=== PATIENT | female | born 1975 ===

== ENCOUNTER 2017-01-27 06:08 | Day surgery (SDC) | payer MEDICARE, MEDICAID ==
[2017-01-20 07:36] VITALS: BMI 33.5
[2017-01-27 06:46] LABS: HEMATOCRIT 38.9 % (34.0-47.0); MEAN CELL VOLUME 92.6 fl (81.0-99.0); MEAN CORPUSCULAR HEMOGLOBIN 30.6 pg (27.0-31.0); RED CELL DISTRIBUTION WIDTH 13.4 % (11.5-14.5); WHITE BLOOD COUNT 6.2 K/uL (4.8-10.8)
[2017-01-27] MEDS ORDERED: Propofol 10 mg/ml Inj (20 ML) ONE (07:38)
[2017-01-27] MEDS ORDERED: Midazolam 2 MG/2 ML VIAL ONE (07:38)
[2017-01-27] MEDS ORDERED: Lactated Ringer's 1,000 ML IV ONE (08:16)
--- NOTE | 2017-01-27 08:57 | PCM.SURG1 ---
Surgeon's Initial Post Op Note - Surgeon's Notes Surgeon: Dr Jacobsen Payroll Manager: Solange Henriquez( Resident) Type of Anesthesia: General Endo Anesthesia Administered By: Dr Boone Pre-Operative Diagnosis: Hypermenorrhea with endometrial polyps Operative Findings: 7-8wk sized anteverted uterus with hyperplastic endometrium and multiple endometrial polyps at hysteroscopy. IVF- 600mls. urine output- 20mls. EBL- 30mls Post-Operative Diagnosis: Same as Preop Operation Performed: D and C hysteroscopy Specimen/Specimens Removed: Endometrial and endocervical curretings. Estimated Blood Loss: EBL {In ML}: 30 Blood Products Given: N/A Post-Op Condition: Good Date of Surgery/Procedure: 01/27/17 Time of Surgery/Procedure: 08:58
[2017-01-27] MEDS ORDERED: DiphenhydrAMINE 50 mg/ml Inj IVP PRN (09:01)
[2017-01-27] MEDS: HYDROmorphone 0.5 mg/0.5 ml ISec IVP PRN ×2 (09:26→09:45)
[2017-01-27 10:10] VITALS: RESP 18
[2017-01-27 12:05] VITALS: BP 113/66; PULSE 73; TEMP 97.7; O2SAT 100
--- NOTE | 2017-01-27 13:45 | OP ---
PROCEDURE DATE: 01/27/2017 PREOPERATIVE DIAGNOSIS: A 41-year-old female with hypermenorrhea with endometrial polyps. POSTOPERATIVE DIAGNOSIS: A 41-year-old female with hypermenorrhea with endometrial polyps. PROCEDURE DONE: D and C, hysteroscopy with endometrial and endocervical curettage. SURGEON: Dr. Jacobsen. AIRPLANE PILOT HELPER: Solange Henriquez (family coach). ANESTHESIA: General endotracheal. Anesthesia administered by Dr. Boone. FINDINGS: A 7-8 weeks anteverted uterus with copious amounts of hyperplastic endometrium and multiple endometrial polyps at hysteroscopy. INTRAVENOUS FLUID INTAKE: 600 mL. URINE OUTPUT: 20 mL. ESTIMATED BLOOD LOSS: About 30 mL. COMPLICATIONS: None. SPECIMEN FOR HISTOPATHOLOGY: Both endometrial and endocervical curettage. DESCRIPTION OF PROCEDURE: After obtaining informed consent, the patient was sent to the OR with IV running. The patient was placed in a supine position on the OR table. After general anesthesia, the patient was placed in the dorsal lithotomy position. The patient was then prepped and draped in a sterile fashion. The uterine size was accessed with the above findings. The posterior wall of the vagina was depressed using a weighted speculum and the anterior wall was elevated with an L-shaped retractor to expose the cervix. The anterior lip of the cervix was held with a single tooth tenaculum. The uterine cavity was sounded to a depth of about 7-8 cm. The cervical canal was then serially dilated using Hegar's dilated to a dilatation of about 8 mm. The hysteroscope was introduced through the cervix into the uterine cavity and the findings noted above were noted. Multiple photos were taken to document findings. The hysteroscope was then removed from the intrauterine cavity and sharp curettages using a curette were done to curet the endometrial tissue and the hyperplastic tissue. Endocervical curettage was also performed. This procedure was performed until the bubbles were seen from the endometrial cavity. Samples taken were sent for histopathological evaluation. Once the procedure was completed, the vagina was cleaned and hemostasis from the cervix was also ascertained. All instruments were taken from the vagina and the patient replaced in the supine position. The patient was then sent into the recovery room awake and in stable condition. All counts of instruments and gauze used were correct x 3. Kosta Jacobsen MD cc: [id number] TT: 01/27/2017 13:44:35 tn MTDD
== END 2017-01-27 12:25 | disposition home or self-care (01) ==
LOC: H.OPSURG 06:08
PROVIDERS: ATTEND Obstetrics & Gynecology
DX: N93.9 Abnormal uterine and vaginal bleeding, unspecified (principal); J45.909 Unspecified asthma, uncomplicated; E78.5 Hyperlipidemia, unspecified; Z21 Asymptomatic human immunodeficiency virus [HIV] infection status
CPT/HCPCS: 36415; 58558; 85027; 88305; J0690; J1170; J1200; J2001; J2250; J2704; J3010; J7030; J7120

== ENCOUNTER 2017-02-12 23:46 | Observation (INO) | payer MEDICARE, MEDICAID ==
[2017-02-12 23:46] VITALS: BMI 33.5
[2017-02-13] MEDS ORDERED: Iohexol 240 (50 ml) PO ONE (00:20)
[2017-02-13] MEDS ORDERED: Ciprofloxacin 400mg/200ml D5W 200 ML IV STA (00:32)
[2017-02-13] MEDS ORDERED: metroNIDAZOLE 500mg/100ml NS 100 ML IVPB STA (00:32)
[2017-02-13] MEDS ORDERED: Iohexol 240 (50 ml) ONE (00:36)
[2017-02-13] MEDS ORDERED: Piperacillin/Tazobact 3.375 GM in Sodium Chloride 0.9% 100 ML IV STA (00:48)
[2017-02-13] MEDS ORDERED: Sodium Chloride 0.9% 1,000 ML IV STA (00:48)
[2017-02-13] MEDS ORDERED: metroNIDAZOLE 500mg/100ml NS 100 ML IVPB ONE (00:57)
[2017-02-13] MEDS ORDERED: Piperacillin/Tazobact 3.375 gm Inj IVPB ONE (00:57)
[2017-02-13 01:19] LABS: BASO % 0.4 % (0.0-2.0); EOS # 0.1 K/uL (0.0-0.7); EOS % 2.6 % (0.0-4.0); HEMATOCRIT 39.8 % (34.0-47.0); LYMPH # 2.2 K/uL (1.0-4.3); LYMPH % 42.9 % (20.0-40.0); MEAN CORPUSCULAR HEMOGLOBIN 30.5 pg (27.0-31.0); MEAN CORPUSCULAR HGB CONC 32.8 g/dL (33.0-37.0); MEAN PLATELET VOLUME 9.6 fl (7.2-11.7); MONO # 0.5 K/uL (0.0-0.8); MONO % 9.8 % (0.0-10.0); NEUT # 2.3 K/uL (1.8-7.0); NEUT % 44.3 % (50.0-75.0); NRBC % 0.1 % (0.0-0.0); RED CELL DISTRIBUTION WIDTH 13.3 % (11.5-14.5); WHITE BLOOD COUNT 5.2 K/uL (4.8-10.8)
--- NOTE | 2017-02-13 01:23 | ED PDOC ---
HPI: Abdomen Time Seen by Provider: 02/13/17 00:05 Chief Complaint (Nursing): GI Problem Chief Complaint (Provider): abd pain History Per: Patient History/Exam Limitations: no limitations Onset/Duration Of Symptoms: Days (2) Outside of [place] travel?: No Current Symptoms Are (Timing): Still Present Additional Complaint(s): 41yo female with PMHx including diverticulosis/diverticulitis, HIV (last viral load undetectable) presents to the ED with c/o abd pain x 2 days. Patient reports worsening abd pain localized to LLQ with fever (tmax 102). Further reports nausea with non-bloody, non-bilious vomiting and somewhat loose BM with no blood. Notes pain is 8/10. Past Medical History Reviewed: Historical Data, Nursing Documentation, Vital Signs Vital Signs: Last Vital Signs Temp Pulse 60 02/12/17 23:54 Resp 18 02/12/17 23:54 BP 113/58 L 02/12/17 23:54 Pulse Ox 99 02/13/17 04:03 - Medical History PMH: Anemia, Anxiety, Arthritis, Asthma, Depression, Diverticulitis, Gastritis, HIV Denies: Chronic Kidney Disease - Surgical History Surgical History: Endoscopy (X2) - Family History Family History: States: Unknown Family Hx - Social History Current smoker - smoking cessation education provided: No Alcohol: None Drugs: Denies - Immunization History Hx Tetanus Toxoid Vaccination: Yes (03/16/12) Hx Pneumococcal Vaccination: Yes (11/04/12) - Home Medications Home Medications: Ambulatory Orders Medication Instructions Recorded Acetaminophen/Oxycodone Hydr 1 tab PO BID PRN 09/26/15 [Percocet 10/325 mg Tab] Alprazolam [Xanax] 2 mg PO BID 09/26/15 Darunavir [Prezista] 1 tab PO DAILY 09/26/15 Emtricitabine/Tenofovir Diso 1 tab PO DAILY 09/26/15 [Truvada 200 MG-300 MG] Fluticasone/Salmeterol 100/50 2 puff INH DAILY 09/26/15 [Advair Diskus 100/50] Ritonavir [Norvir] 1 tab PO DAILY 09/26/15 Albuterol Sulfate [Proair Hfa] 2 puff IH PRN PRN 01/27/17 oxyCODONE [oxyCODONE Immediate 30 mg PO BID PRN 01/27/17 Release Tab] Dexlansoprazole [Dexilant] 1 tab PO DAILY 02/13/17 - Allergies Allergies/Adverse Reactions: Allergies Allergy/AdvReac Type Severity Reaction Status Date / Time efavirenz [From Sustiva] Allergy RASH Verified 01/11/16 14:58 kiwi Allergy ANAPHYLAXIS Verified 01/11/16 14:58 moxifloxacin HCl Allergy ANAPHYLAXIS Verified 01/11/16 14:58 [From Avelox] peach Allergy ANAPHYLAXIS Verified 01/11/16 14:58 hydromorphone HCl AdvReac Mild ITCHING Verified 01/27/17 10:00 [From Dilaudid] liquid codeine AdvReac HARD TO Uncoded 01/27/17 07:13 WAKE UP Review of Systems ROS Statement: Except As Marked, All Systems Reviewed And Found Negative Constitutional: Positive for: Fever Gastrointestinal: Positive for: Nausea, Vomiting, Abdominal Pain Physical Exam - Reviewed Nursing Documentation Reviewed: Yes Vital Signs Reviewed: Yes - Physical Exam Appears: Positive for: Well, No Acute Distress, Uncomfortable Head Exam: Positive for: ATRAUMATIC, NORMAL INSPECTION, NORMOCEPHALIC Skin: Positive for: Normal Color, Warm, Dry Eye Exam: Positive for: Normal appearance, EOMI, PERRL ENT: Positive for: Normal ENT Inspection Neck: Positive for: Normal, Painless ROM, Supple Cardiovascular/Chest: Positive for: Regular Rate, Rhythm. Negative for: Murmur , Tachycardia Respiratory: Positive for: Normal Breath Sounds. Negative for: Wheezing, Respiratory Distress Gastrointestinal/Abdominal: Positive for: Soft, Tenderness (LLQ ). Negative for : Guarding, Rebound Back: Positive for: Normal Inspection. Negative for: L CVA Tenderness, R CVA Tenderness Extremity: Positive for: Normal ROM. Negative for: Deformity, Swelling Neurologic/Psych: Positive for: Alert, Oriented - Laboratory Results Result Diagrams: 02/13/17 01:14 02/13/17 01:14 - ECG O2 Sat by Pulse Oximetry: 99 Pulse Ox Interpretation: Normal (RA) Medical Decision Making Medical Decision Makin: Impression: 41yo female w/ LLQ pain and fever in setting of known diverticular disease and HIV Plan: CT A/P Labs EKG Flagyl 100ml IVPB, Morphine 4mg IVP, IVF, Zosyn 3.375gm IV, Zofran 4mg IV reassess 0337: CT A/P impression: Large fibroid uterus. Multiple right adnexal cysts as discussed above. Possible very mild left-sided diverticulitis. Right-sided constipation. 0358: Patient reports some improvement in symptoms. Labs reviewed, show no clinically significant abnormalities. Due to hx of HIV patient will be placed on obs status for acute diverticulitis. Case discussed with Dr. Parker (family practice resident on-call). Dx: acute diverticulitis fair Scribe Attestation: Documented by Radha Kline acting as a scribe for Adelfo Portillo MD. Provider Scribe Attestation: All medical record entries made by the Scribe were at my direction and personally dictated by me. I have reviewed the chart and agree that the record accurately reflects my personal performance of the history, physical exam, medical decision making, and the department course for this patient. I have also personally directed, reviewed, and agree with the discharge instructions and disposition. Disposition - Clinical Impression Clinical Impression: Acute diverticulitis Discussed With : Venancio Parker - Disposition Disposition Time: 03:58 Condition: FAIR - Pt Status Changed To: Hospital Disposition Of: Observation
[2017-02-13 01:27] LABS: ALB/GLOB RATIO 1.1 (1.0-2.1); ALKALINE PHOSPHATASE 58 U/L (38-126); ALT/SGPT 26 U/L (9-52); AST/SGOT 29 U/L (14-36); BILIRUBIN,TOTAL 0.4 mg/dl (0.2-1.3); BLOOD UREA NITROGEN 23 mg/dl (7-17); CALCIUM 9.4 mg/dL (8.4-10.2); CARBON DIOXIDE 29 mmol/L (22-30); CHLORIDE 100 mmol/L (98-107); GFR AFRICAN-AMERICAN > 60; GLUCOSE,RANDOM 87 mg/dL (65-105); LIPASE 125 U/L (23-300); SODIUM 138 mmol/l (132-148); TOTAL PROTEIN 7.6 G/DL (6.3-8.2)
[2017-02-13 01:32] LABS: PARTIAL THROMBOPLASTIN TIME 25.8 SECONDS (23.3-32.5)
[2017-02-13] MEDS ORDERED: Iohexol 300 100 ML IJ ONE (02:04)
[2017-02-13] MEDS ORDERED: Sodium Chloride 0.9% 50 ML IV ONE (02:04)
--- NOTE | 2017-02-13 03:37 | CT ---
EXAM: CT Abdomen and Pelvis With Intravenous Contrast CLINICAL HISTORY: 41 years old, female; Pain; Abdominal pain; Localized; Left lower quadrant (llq); Additional info: Abd pain TECHNIQUE: Axial computed tomography images of the abdomen and pelvis with intravenous contrast. This CT exam was performed using one or more of the following dose reduction techniques: automated exposure control, adjustment of the mA and/or kV according to patient size, and/or use of iterative reconstruction technique. Coronal and sagittal reformatted images were created and reviewed. CONTRAST: 90 mL of [id number] administered intravenously. EXAM DATE/TIME: 02/13/2017 12:19 AM COMPARISON: CT - ABD PELVIS W/O PO OR IV CONT 11/11/2016 8:31:14 AM FINDINGS: Tiny hypoattenuating hepatic lesions are present too small to accurately characterize however likely represents cysts. The spleen is normal. The pancreas is normal. No gallstones. No hydronephrosis or perinephric stranding. Colonic diverticulosis is present. There is very faint haziness in the fat adjacent to the distal descending colon possibly representing very early inflammatory changes of diverticulitis. The right colon is distended with stool consistent with constipation. The appendix is identified series 3 images 97 through 113 coronal images 60 through 70. It measures 6 mm which is the upper limits of normal however is unchanged from prior. No periappendiceal inflammation. There is an umbilical fat hernia unchanged. The uterus is again seen to be enlarged at least partly secondary to fibroids. The largest mass is in the right uterine body/fundus extending to the endometrial canal. There are cystic structures in the right adnexa representing an ovarian and/or paraovarian cysts. There is one cyst that is partially collapsed image 140 . There is only minimal free fluid. IMPRESSION: Large fibroid uterus. Multiple right adnexal cysts as discussed above. Possible very mild left-sided diverticulitis. Right-sided constipation.
--- NOTE | 2017-02-13 04:01 | CP.PCM.HP ---
History of Present Illness - History of Present Illness History of Present Illness: CC: left sided abdominal pain x 2 days 41yo female PmH HIV (last viral load undetectable) presents to the ED with c/o abd pain x 2 days. Patient reports worsening abd pain localized to LLQ with fever at home (tmax 102). Associated with nausea with NBNB vomiting and somewhat loose BM with no blood. Currently denies chills, cp, palpitations, sob, TRIVEDI, focal weakness, parasthesias. No recent travel or sick contacts. Patient has had episodes of diverticulitis before. PMD: Dr Crisostomo PMH: HIV PSH:ovarian cystectomy- laparoscopic 1989, varicose vein stripping , D+C for DUB 1989, 01/27/17 D & C with Hysteroscopy Allergies: CODIENE - stuperous, PEACHES/KIWI, liquid codiene: Side Effects - sleeps, ZIDOVUDINE, avelox - hives, sustiva - faints Meds: per ecw Taking Advair Diskus 100-50 MCG/DOSE Aerosol Powder Breath Activated Taking Proventil HFA 108 (90 Base) MCG/ACT Aerosol Solution Taking Strovite ONE 1tablet Taking Valtrex 1000MG Tablet Taking Dexilant 60 MG Capsule Delayed Release Taking Norvir 100 MG Tablet Taking Prezista 800 MG Tablet Taking Truvada 200-300 MG Tablet ED Course: CT A/P Labs EKG Flagyl 100ml IVPB, Morphine 4mg IVP, IVF, Zosyn 3.375gm IV, Zofran 4mg IV 0337: CT A/P impression: Large fibroid uterus. Multiple right adnexal cysts as discussed above. Possible very mild left-sided diverticulitis. Right-sided constipation. Present on Admission - Present on Admission Any Indicators Present on Admission: No Review of Systems - Review of Systems Review of Systems: see hpi Past Patient History - Infectious Disease Hx of Infectious Diseases: None - Past Medical History & Family History Past Medical History?: Yes - Past Social History Alcohol: None Drugs: Denies - CARDIAC Hx Cardiac Disorders: No - PULMONARY Hx Asthma: Yes - NEUROLOGICAL Hx Neurological Disorder: No - HEENT Hx HEENT Problems: No - RENAL Hx Chronic Kidney Disease: No - ENDOCRINE/METABOLIC Hx Endocrine Disorders: No - HEMATOLOGICAL/ONCOLOGICAL Hx Anemia: Yes Hx Human Immunodeficiency Virus (HIV): Yes - INTEGUMENTARY Hx Dermatological Problems: No - MUSCULOSKELETAL/RHEUMATOLOGICAL Hx Arthritis: Yes - GASTROINTESTINAL Hx Diverticulitis: Yes Hx Gastritis: Yes - GENITOURINARY/GYNECOLOGICAL Hx Genitourinary Disorders: No - PSYCHIATRIC Hx Anxiety: Yes Hx Depression: Yes - SURGICAL HISTORY Hx Surgeries: Yes Hx Dilation and Curettage: Yes (X2) - ANESTHESIA Hx Malignant Hyperthermia: No Meds Allergies/Adverse Reactions: Allergies Allergy/AdvReac Type Severity Reaction Status Date / Time efavirenz [From Sustiva] Allergy RASH Verified 01/11/16 14:58 kiwi Allergy ANAPHYLAXIS Verified 01/11/16 14:58 moxifloxacin HCl Allergy ANAPHYLAXIS Verified 01/11/16 14:58 [From Avelox] peach Allergy ANAPHYLAXIS Verified 01/11/16 14:58 hydromorphone HCl AdvReac Mild ITCHING Verified 01/27/17 10:00 [From Dilaudid] liquid codeine AdvReac HARD TO Uncoded 01/27/17 07:13 WAKE UP Physical Exam - Constitutional Appears: Non-toxic, No Acute Distress - Head Exam Head Exam: ATRAUMATIC - Eye Exam Eye Exam: EOMI Pupil Exam: PERRL - ENT Exam ENT Exam: Mucous Membranes Moist - Neck Exam Neck exam: Positive for: Full Rom. Negative for: Tenderness - Respiratory Exam Respiratory Exam: Clear to Auscultation Bilateral - Cardiovascular Exam Cardiovascular Exam: +S1, +S2 - GI/Abdominal Exam GI & Abdominal Exam: Soft, Tenderness. absent: Distended, Rigid Additional comments: LUQ and LLQ tenderness - Extremities Exam Extremities exam: Negative for: calf tenderness, pedal edema - Back Exam Back exam: absent: CVA tenderness (L), CVA tenderness (R) - Neurological Exam Neurological exam: Alert, Oriented x3 - Psychiatric Exam Psychiatric exam: Normal Affect, Normal Mood - Skin Skin Exam: Dry, Normal Color, Warm Results - Vital Signs Recent Vital Signs: Last Vital Signs Temp Pulse 60 02/12/17 23:54 Resp 18 02/12/17 23:54 BP 113/58 L 02/12/17 23:54 Pulse Ox 99 02/13/17 04:00 - Labs Result Diagrams: 02/13/17 01:14 02/13/17 01:14 Labs: Laboratory Results - last 24 hr 02/13/17 02/13/17 02/13/17 01:14 01:14 01:14 WBC 5.2 RBC 4.28 Hgb 13.1 Hct 39.8 MCV 93.0 MCH 30.5 MCHC 32.8 L RDW 13.3 Plt Count 200 MPV 9.6 Neut % (Auto) 44.3 L Lymph % (Auto) 42.9 H [place] % (Auto) 9.8 Eos % (Auto) 2.6 Baso % (Auto) 0.4 Neut # 2.3 Lymph # 2.2 [place] # 0.5 Eos # 0.1 Baso # 0.0 PT INR APTT Sodium 138 Potassium 4.0 Chloride 100 Carbon Dioxide 29 Anion Gap 13 BUN 23 H Creatinine 1.0 Est GFR ( Amer) > 60 Est GFR (Non-Af Amer) > 60 Random Glucose 87 Lactic Acid Calcium 9.4 Total Bilirubin 0.4 AST 29 ALT 26 Alkaline Phosphatase 58 Total Protein 7.6 Albumin 4.0 Globulin 3.6 Albumin/Globulin Ratio 1.1 Lipase 125 Influenza Typ A,B (EIA) Negative for flu a/b 02/13/17 02/13/17 01:14 01:14 WBC RBC Hgb Hct MCV MCH MCHC RDW Plt Count MPV Neut % (Auto) Lymph % (Auto) [place] % (Auto) Eos % (Auto) Baso % (Auto) Neut # Lymph # [place] # Eos # Baso # PT 11.1 INR 1.07 APTT 25.8 Sodium Potassium Chloride Carbon Dioxide Anion Gap BUN Creatinine Est GFR ( Amer) Est GFR (Non-Af Amer) Random Glucose Lactic Acid 0.8 Calcium Total Bilirubin AST ALT Alkaline Phosphatase Total Protein Albumin Globulin Albumin/Globulin Ratio Lipase Influenza Typ A,B (EIA) Assessment & Plan - Assessment and Plan (Free Text) Plan: 41yo female PmH HIV (last viral load undetectable) admitted for acute diverticulitis Left sided abdominal pain 2/2 acute diverticulitis ED Course: VS stable, no leukocytosis CT A/P Labs EKG Flagyl 100ml IVPB x 1, Morphine 4mg IVP, IVF, Zosyn 3.375gm IV, Zofran 4mg IV x 1 CT A/P impression: Possible very mild left-sided diverticulitis. Right-sided constipation. admit to med/surg NPO D5 1/2 NS @ 125 ml zofran 4 mg IV Q8 morphine 2 mg Q4PRN Flagyl 500 mg IV Q8 Zosyn 3.375gm IV Q8 repeat labs in AM HIV c/w ARVs per [facility] VL <20, CD4 739 (02/25) Anxiety c/w home med xanax Asthma c/w proventil, advair PPx DVT - ambulates, SCds Diet NPO
[2017-02-13] MEDS ORDERED: Dextrose 5%/0.45% NS 1,000 ML IV SCH (04:02)
[2017-02-13] MEDS ORDERED: Patient's Own Med (Albuterol Sulfate 2 PUFF) IH PRN (04:14)
[2017-02-13] MEDS ORDERED: Albuterol HFA 90 mcg/actuation (8 g) INH PRN (04:32)
[2017-02-13 05:31] VITALS: O2SAT 96
[2017-02-13 07:44] VITALS: BP 106/72; PULSE 68; RESP 18; TEMP 97.9
--- NOTE | 2017-02-13 08:53 | CARD ---
APPROVED REPORT EKG Measurement Heart [id number] <Conclusion> Normal sinus rhythm Left axis deviation Pulmonary disease pattern Abnormal ECG
[2017-02-13] MEDS ORDERED: Emtricitabine-Tenofovir 200 mg-300 mg Tab PO SCH (09:00)
[2017-02-13] MEDS ORDERED: metroNIDAZOLE 500mg/100ml NS IVPB SCH (09:00)
[2017-02-13] MEDS ORDERED: Piperacillin/Tazobact 3.375 GM in Sodium Chloride 0.9% 100 ML IVPB SCH (09:00)
[2017-02-13] MEDS ORDERED: metroNIDAZOLE 500mg/100ml NS 100 ML IVPB SCH (09:00)
[2017-02-13] MEDS ORDERED: Fluticasone-Salmeterol 100-50mcg Diskus INH SCH (09:00)
[2017-02-13] MEDS ORDERED: Magnesium Hydroxide Susp 30 ml UD PO STA (09:11)
--- NOTE | 2017-02-13 09:22 | CP.PCM.PN ---
Subjective - Date & Time of Evaluation Date of Evaluation: 02/13/17 Time of Evaluation: 07:00 - Subjective Subjective: Patient was seen and examined at bedside this morning. Patient states she feels better, and denies any abdominal pain to this evaluation. Denies nausea, vomiting, diarrheas or other complains. Objective - Vital Signs/Intake and Output Vital Signs (last 24 hours): Temp Pulse Resp BP Pulse Ox 97.9 F 68 18 106/72 96 02/13/17 07:43 02/13/17 07:43 02/13/17 07:43 02/13/17 07:43 02/13/17 07:43 - Medications Medications: Current Medications Acetaminophen (Tylenol 325mg Tab) 650 mg PO Q6 PRN PRN Reason: Fever >100.4 F Albuterol (Ventolin Hfa 90 Mcg/Actuation (8 G)) 2 puff INH RQ6 PRN PRN Reason: Shortness of Breath Last Admin: 02/13/17 09:04 Dose: 2 puff Alprazolam (Xanax) 2 mg PO BID ON LICENSE OF [facility] Last Admin: 02/13/17 09:14 Dose: 2 mg Darunavir (Prezista) 800 mg PO DAILY ON LICENSE OF [facility] Last Admin: 02/13/17 09:04 Dose: 800 mg Emtricitabine/Tenofovir (Truvada 200 Mg-300 Mg) 1 tab PO DAILY ON LICENSE OF [facility] Last Admin: 02/13/17 09:04 Dose: 1 tab Enoxaparin Sodium (Lovenox) 40 mg SC DAILY@2000 DAR PRN Reason: Protocol Dextrose/Sodium Chloride (Dextrose 5%/0.45% Ns 1000 Ml) 1,000 mls @ 125 mls/hr IV .Q8H ON LICENSE OF [facility] Last Admin: 02/13/17 05:45 Dose: 125 mls/hr Piperacillin Sod/Tazobactam (Sod 3.375 gm/ Sodium Chloride) 100 mls @ 100 mls/ hr IVPB Q8 ON LICENSE OF [facility] Metronidazole (Flagyl 500mg/100ml Ns) 100 mls @ 100 mls/hr IVPB Q8 ON LICENSE OF [facility] Morphine Sulfate (Morphine) 2 mg IVP Q4 PRN PRN Reason: Pain, moderate (4-7) Last Admin: 02/13/17 05:43 Dose: 2 mg Ondansetron HCl (Zofran Inj) 4 mg IVP Q6 PRN PRN Reason: Nausea/Vomiting Ritonavir (Norvir) 100 mg PO DAILY ON LICENSE OF [facility] Last Admin: 02/13/17 09:04 Dose: 100 mg Fluticasone/Salmeterol (Advair Diskus 100/50) 2 puff INH DAILY ON LICENSE OF [facility] Last Admin: 02/13/17 09:15 Dose: 2 puff - Labs Labs: PT 11.1 SECONDS (9.6-11.2) 02/13/17 01:14 INR 1.07 (0.92-1.08) 02/13/17 01:14 APTT 25.8 SECONDS (23.3-32.5) 02/13/17 01:14 - Constitutional Appears: Non-toxic, No Acute Distress - Eye Exam Eye Exam: Normal appearance - ENT Exam ENT Exam: Mucous Membranes Moist - Respiratory Exam Respiratory Exam: Clear to Ausculation Bilateral, NORMAL BREATHING PATTERN - Cardiovascular Exam Cardiovascular Exam: REGULAR RHYTHM, +S1, +S2 - GI/Abdominal Exam GI & Abdominal Exam: Soft, Tenderness (Very mild tender to palpation of left lower quadrant, but no rebound tenderness, no rigidity or guarding noted.), Normal Bowel Sounds - Extremities Exam Extremities Exam: Normal Inspection. absent: Calf Tenderness, Pedal Edema - Back Exam Back Exam: NORMAL INSPECTION. absent: CVA tenderness (L), CVA tenderness (R) - Neurological Exam Neurological Exam: Alert, Awake, Oriented x3 - Skin Skin Exam: Dry, Intact, Normal Color Assessment and Plan - Assessment and Plan (Free Text) Assessment: 41 y/o F with PMHx of HIV without AIDS, admitted with diverticulitis, receiving antibiotics, improving clinically. Plan: Plan: 1) Diverticulitis -Improving -Patient has been afebrile, no leukocytosis -Continue Zosyn IV Q 8 hours -Continue with Metronidazol IV Q 8 hours -Continue with pain management PRN with Tylenol PO -Start [place] diet with breakfast, and re-assess tolerance to advance -Abdominal CT scan showed :Large fibroid uterus. Multiple right adnexal cysts as discussed above. Possible very mild left-sided diverticulitis. Right-sided constipation. -F/U blood culture results -Consider GI consult if patient does not follow with GI doctor as outpatient. 2) HIV infection, asymptomatic without AIDS -CD4 count on 11/07/16 showed 1031/ WNL -Viral load: 40 copies/ml -Continue HAART therapy as directed 3)Multiple right adnexal cysts in abdominal CT scan R/O cyst torsion -F/U transvaginal ultrasound ordered today 4) DVT prophylaxis Lovenox 40 mg SC daily 5) h/o Asthma -Controlled, asymptomatic -Continue home medications 6) h/o Anxiety -Continue home medications
--- NOTE | 2017-02-13 13:39 | US ---
HISTORY: h/o adnexal cyst and c/o abdominal pain COMPARISON: Pelvic ultrasound performed 12/30/16. CT of the abdomen and pelvis with contrast performed 02/13/17 TECHNIQUE: Transvaginal pelvic ultrasound FINDINGS: UTERUS: Measures 9.5 x 5.5 x 7.8 cm. Anteverted. Two probable uterine fibroids measuring approximately 3.7 x 2.2 x 2.9 cm within the anterior fundus and 2.6 x 2.5 x 2.5 cm posterior/ lower uterine segment. ENDOMETRIUM: Measures 8 mm in diameter. CERVIX: Nabothian cysts. RIGHT OVARY: Measures 3.8 x 3.0 x 2.7 cm. Blood flow is demonstrated. 2.7 x 1.8 x 2.0 cm follicle/cyst. Exophytic versus right parovarian cyst measuring approximately 2.7 cm. LEFT OVARY: Measures 3.2 x 2.3 x 2.4 cm. Blood flow is demonstrated. 1.1 x 1.1 x 1.1 cm left ovarian follicle/cyst. FREE FLUID: Small pelvic fluid noted adjacent to the right ovary. OTHER FINDINGS: None. IMPRESSION: Bilateral ovarian cysts. Exophytic versus right parovarian cyst measuring approximately 2.7 cm. Small pelvic free fluid noted adjacent to the right ovary. Two probable uterine fibroids as above.
--- NOTE | 2017-02-13 16:34 | CP.PCM.DIS ---
Provider - Provider Date of Admission: 02/13/17 03:53 Attending physician: Jennifer Gomez MD Time Spent in preparation of Discharge (in minutes): 20 Diagnosis - Discharge Diagnosis (1) Acute diverticulitis Status: Acute Priority: High Comment: Improving clinically, but patient signed an AMA. Metronidazole prescription was given to complete course for 10 days, and f/u with general surgery and PMD. ER precautions provided. (2) HIV (human immunodeficiency virus infection) Status: Chronic Priority: High Comment: Asymptomatic without AIDS. Patient is on HAART therapy. (3) Asthma Status: Chronic Priority: Medium Comment: Asymptomatic. Controlled. (4) Ovarian cyst Status: Chronic Priority: Medium Comment: F/U transvaginal ultrasound results done in this admission. (5) Fibroid Status: Chronic Priority: Medium Comment: F/U with [facility] as outpatient. Hospital Course - Lab Results Lab Results: Most Recent Lab Values WBC 5.2 K/uL (4.8-10.8) 02/13/17 01:14 RBC 4.28 Mil/uL (3.80-5.20) 02/13/17 01:14 Hgb 13.1 g/dL (12.0-16.0) 02/13/17 01:14 Hct 39.8 % (34.0-47.0) 02/13/17 01:14 MCV 93.0 fl (81.0-99.0) 02/13/17 01:14 MCH 30.5 pg (27.0-31.0) 02/13/17 01:14 MCHC 32.8 g/dL (33.0-37.0) L 02/13/17 01:14 RDW 13.3 % (11.5-14.5) 02/13/17 01:14 Plt Count 200 K/uL (130-400) 02/13/17 01:14 MPV 9.6 fl (7.2-11.7) 02/13/17 01:14 Neut % (Auto) 44.3 % (50.0-75.0) L 02/13/17 01:14 Lymph % (Auto) 42.9 % (20.0-40.0) H 02/13/17 01:14 Wythe % (Auto) 9.8 % (0.0-10.0) 02/13/17 01:14 Eos % (Auto) 2.6 % (0.0-4.0) 02/13/17 01:14 Baso % (Auto) 0.4 % (0.0-2.0) 02/13/17 01:14 Neut # 2.3 K/uL (1.8-7.0) 02/13/17 01:14 Lymph # 2.2 K/uL (1.0-4.3) 02/13/17 01:14 Wythe # 0.5 K/uL (0.0-0.8) 02/13/17 01:14 Eos # 0.1 K/uL (0.0-0.7) 02/13/17 01:14 Baso # 0.0 K/uL (0.0-0.2) 02/13/17 01:14 PT 11.1 SECONDS (9.6-11.2) 02/13/17 01:14 INR 1.07 (0.92-1.08) 02/13/17 01:14 APTT 25.8 SECONDS (23.3-32.5) 02/13/17 01:14 Sodium 138 mmol/l (132-148) 02/13/17 01:14 Potassium 4.0 MMOL/L (3.6-5.0) 02/13/17 01:14 Chloride 100 mmol/L (98-107) 02/13/17 01:14 Carbon Dioxide 29 mmol/L (22-30) 02/13/17 01:14 Anion Gap 13 (10-20) 02/13/17 01:14 BUN 23 mg/dl (7-17) H 02/13/17 01:14 Creatinine 1.0 mg/dL (0.7-1.2) 02/13/17 01:14 Est GFR ( Amer) > 60 02/13/17 01:14 Est GFR (Non-Af Amer) > 60 02/13/17 01:14 Random Glucose 87 mg/dL (65-105) 02/13/17 01:14 Lactic Acid 0.8 MMOL/L (0.7-2.1) 02/13/17 01:14 Calcium 9.4 mg/dL (8.4-10.2) 02/13/17 01:14 Total Bilirubin 0.4 mg/dl (0.2-1.3) 02/13/17 01:14 AST 29 U/L (14-36) 02/13/17 01:14 ALT 26 U/L (9-52) 02/13/17 01:14 Alkaline Phosphatase 58 U/L (38-126) 02/13/17 01:14 Total Protein 7.6 G/DL (6.3-8.2) 02/13/17 01:14 Albumin 4.0 g/dL (3.5-5.0) 02/13/17 01:14 Globulin 3.6 gm/dL (2.2-3.9) 02/13/17 01:14 Albumin/Globulin Ratio 1.1 (1.0-2.1) 02/13/17 01:14 Lipase 125 U/L (23-300) 02/13/17 01:14 Influenza Typ A,B (EIA) Negative for flu a/b (NEGATIVE) 02/13/17 01:14 - Hospital Course Hospital Course: This is a 41 yo female with PMHx of HIV infection without AIDS, and previous episodes of acute diverticulitis who came to ED complaining of abdominal pain, fever, nausea, and vomiting. Abdominal CT scan showed acute diverticulitis and she was admitted to [facility] under observation for IV antibiotic therapy. GI was consulted because recurrent diverticulitis. Patient was managed with NPO, IV antibiotics: Zosyn and Flagyl, and pain medications.Diet was advance this morning at breakfast and well tolerated. Patient HAART therapy was reassumed while in hospital. Transvaginal ultrasound was done to r/o adnexal cyst torsion. Patient decided to sign and AMA before. At the time of AMA patient denied any symptoms. As per patient she has an appointment with Dr. Crisostomo at [facility] on February 16, 2017 AM. We recommended patient to f/u with general surgeon for further management of recurrent diverticulitis. Home Medications Metronidazol 500 mg PO TID for 10 days Advair Diskus 100-50 MCG/DOSE Aerosol Powder Breath Activated 1 puff BID Proventil HFA 108 (90 Base) MCG/ACT Aerosol Solution 2 puffs PRN BID Strovite ONE 1tablet daily Valtrex 1000MG Tablet daily Dexilant 60 MG Capsule Delayed Release daily Norvir 100 MG Tablet daily Prezista 800 MG Tablet daily Truvada 200-300 MG Tablet daily - Date & Time of H&P Date of H&P: 02/13/17 Time of H&P: 04:00 Discharge Exam - Eye Exam Eye Exam: Normal appearance - ENT Exam ENT Exam: Mucous Membranes Moist - Respiratory Exam Respiratory Exam: Clear to PA & Lateral, NORMAL BREATHING PATTERN - Cardiovascular Exam Cardiovascular Exam: REGULAR RHYTHM, +S1, +S2 - GI/Abdominal Exam GI & Abdominal Exam: Normal Bowel Sounds, Soft. absent: Distended, Guarding, Rebound, Rigid, Tenderness - Extremities Exam Extremities exam: normal inspection Additional comments: No edema in lower extremities. Peripheral pulses present and bilateral. - Neurological Exam Neurological exam: Alert, Oriented x3 - Skin Skin Exam: Dry, Intact, Normal Color Discharge Plan - Follow Up Plan Condition: STABLE Disposition: AGAINST MEDICAL ADVICE Patient education suggested?: Yes Additional Instructions: F/U with Dr. Crisostomo on February 16, 2017 AM.As per patient she has an appointment. -Take Metronidazole 500 mg TID PO for 10 days as recommended -F/U with general surgeon for evaluation and management of recurrent diverticulitis. -ER precautions given.
[2017-02-13] MEDS ORDERED: Enoxaparin 40 mg Syringe SC SCH (20:00)
== END 2017-02-13 14:39 | disposition left against medical advice (07) ==
LOC: H.ER 23:46 → H.ERHOLD 02-13 03:53 → H.MEDSURG1 02-13 05:24
PROVIDERS: ADMIT Family Medicine Geriatric Medicine; ATTEND Family Medicine Geriatric Medicine
DX: K57.92 Diverticulitis of intestine, part unspecified, without perforation or abscess without bleeding (principal); J45.909 Unspecified asthma, uncomplicated; N83.209 Unspecified ovarian cyst, unspecified side; Z21 Asymptomatic human immunodeficiency virus [HIV] infection status; K29.70 Gastritis, unspecified, without bleeding; K59.00 Constipation, unspecified; D25.9 Leiomyoma of uterus, unspecified; F41.9 Anxiety disorder, unspecified; M19.90 Unspecified osteoarthritis, unspecified site; F32.9 Major depressive disorder, single episode, unspecified; Z88.3 Allergy status to other anti-infective agents; Z88.5 Allergy status to narcotic agent; Z91.018 Allergy to other foods
CPT/HCPCS: 74177; 76830; 80053; 81025; 83605; 83690; 85025; 85610; 85730; 87040; 87804; 93005; 96360; 96365; 96374; 99283; G0378; J2270; J2405; J2543; J7040; J7042; Q9966; Q9967

== ENCOUNTER 2017-09-05 12:43 | Emergency (ER) | payer MEDICARE, MEDICAID ==
[2017-09-05 12:44] VITALS: BMI 33.5
[2017-09-05 13:12] VITALS: BP 115/62; PULSE 74; RESP 18; TEMP 98.1; O2SAT 98
[2017-09-05] MEDS ORDERED: Albuterol-Ipratrop 3 mg / 0.5 (3 ml) UD INH STA (13:20)
--- NOTE | 2017-09-05 13:27 | ED PDOC ---
HPI: General Adult Time Seen by Provider: 09/05/17 13:20 Chief Complaint (Nursing): Flu-like Symptoms Chief Complaint (Provider): Flu-like Symptoms History Per: Patient Onset/Duration Of Symptoms: Other (x 1 week) Current Symptoms Are (Timing): Still Present Additional Complaint(s): Cecile is a 42 year old female with a past medical history of Asthma who presents to the Emergency Department complaining of coughing for 1 week. Patient states it hurts when she coughs. Claims she had pneumonia in the past. Indicates her T-cells are 486 (received it on August 11). States she had liquid nebulizer machine, but was broken and threw it out. PMD: Marlon Fink Past Medical History Reviewed: Historical Data, Nursing Documentation, Vital Signs Vital Signs: Last Vital Signs Temp 98.1 F 09/05/17 13:08 Pulse 74 09/05/17 13:08 Resp 18 09/05/17 13:08 BP 115/62 09/05/17 13:08 Pulse Ox 98 09/05/17 13:53 - Medical History PMH: Anemia, Anxiety, Arthritis, Asthma, Depression, Diverticulitis, Gastritis, HIV Denies: Chronic Kidney Disease - Surgical History Surgical History: Endoscopy (X2) - Family History Family History: States: Unknown Family Hx - Social History Current smoker - smoking cessation education provided: No - Immunization History Hx Tetanus Toxoid Vaccination: Yes (03/16/12) Hx Pneumococcal Vaccination: Yes (11/04/12) - Home Medications Home Medications: Ambulatory Orders Medication Instructions Recorded Acetaminophen/Oxycodone Hydr 1 tab PO BID PRN 09/26/15 [Percocet 10/325 mg Tab] Alprazolam [Xanax] 2 mg PO BID 09/26/15 Darunavir [Prezista] 1 tab PO DAILY 09/26/15 Emtricitabine/Tenofovir Diso 1 tab PO DAILY 09/26/15 [Truvada 200 MG-300 MG] Fluticasone/Salmeterol 100/50 2 puff INH DAILY 09/26/15 [Advair Diskus 100/50] Ritonavir [Norvir] 1 tab PO DAILY 09/26/15 Albuterol Sulfate [Proair Hfa] 2 puff IH PRN PRN 01/27/17 oxyCODONE [oxyCODONE Immediate 30 mg PO BID PRN 01/27/17 Release Tab] Dexlansoprazole [Dexilant] 1 tab PO DAILY 02/13/17 Albuterol 0.083% [Albuterol 0.083% 2.5 mg IH Q8 PRN #100 neb 09/05/17 Inhal Demetria (2.5 mg/3 ml) UD] Azithromycin [Zithromax] 250 mg PO DAILY #6 tab 09/05/17 Mask, Face [Nebulizer Aerosol Mask 1 dev XX PRN PRN #1 dev 09/05/17 Adult] Nebulizer [Aeroeclipse II] 1 each MC Q8 PRN #1 each 09/05/17 Prednisone [Deltasone] 2 tab PO DAILY #10 tablet 09/05/17 - Allergies Allergies/Adverse Reactions: Allergies Allergy/AdvReac Type Severity Reaction Status Date / Time efavirenz [From Sustiva] Allergy RASH Verified 01/11/16 14:58 kiwi Allergy ANAPHYLAXIS Verified 01/11/16 14:58 moxifloxacin HCl Allergy ANAPHYLAXIS Verified 01/11/16 14:58 [From Avelox] peach Allergy ANAPHYLAXIS Verified 01/11/16 14:58 hydromorphone HCl AdvReac Mild ITCHING Verified 01/27/17 10:00 [From Dilaudid] liquid codeine AdvReac HARD TO Uncoded 01/27/17 07:13 WAKE UP Review of Systems ROS Statement: Except As Marked, All Systems Reviewed And Found Negative Respiratory: Positive for: Cough Gastrointestinal: Positive for: Vomiting Physical Exam - Reviewed Nursing Documentation Reviewed: Yes - Physical Exam Appears: Positive for: Non-toxic Head Exam: Positive for: ATRAUMATIC, NORMAL INSPECTION, NORMOCEPHALIC Skin: Positive for: Normal Color Eye Exam: Positive for: Normal appearance Neck: Positive for: Normal Cardiovascular/Chest: Positive for: Regular Rate, Rhythm Respiratory: Positive for: Other (Bronchitis spasm). Negative for: Rales Extremity: Positive for: Normal ROM Neurologic/Psych: Positive for: Alert, Oriented - ECG O2 Sat by Pulse Oximetry: 98 (RA) Pulse Ox Interpretation: Normal - Progress ED Course And Treament: patient feels improved after duoneb. cxr: no acute infiltrate Medical Decision Making Medical Decision Making: Time: 13:20 Plan: - Chest X-Ray - Duoneb 3 mg/05. Mg (3 ml) UD - Peak Flow Pre/Post Tx Scribe Attestation: Documented by Luis Weaver, acting as a scribe for Juan A Reece PA-C Provider Scribe Attestation: All medical record entries made by the Scribe were at my direction and personally dictated by me. I have reviewed the chart and agree that the record accurately reflects my personal performance of the history, physical exam, medical decision making, and the department course for this patient. I have also personally directed, reviewed, and agree with the discharge instructions and disposition. Disposition - Clinical Impression Clinical Impression: Bronchitis - Patient ED Disposition Is Patient to be Admitted: No - Disposition Referrals: Marlon Fink MD [Primary Care Provider] - Disposition: Routine/Home Disposition Time: 14:31 Condition: FAIR Prescriptions: Albuterol 0.083% [Albuterol 0.083% Inhal Demetria (2.5 mg/3 ml) UD] 2.5 mg IH Q8 PRN #100 neb PRN Reason: Cough Azithromycin [Zithromax] 250 mg PO DAILY #6 tab Mask, Face [Nebulizer Aerosol Mask Adult] 1 dev XX PRN PRN #1 dev PRN Reason: Cough Nebulizer [Aeroeclipse II] 1 each MC Q8 PRN #1 each PRN Reason: Cough Prednisone [Deltasone] 2 tab PO DAILY #10 tablet Instructions: Acute Bronchitis (ED) Forms: [employer] (Greenlandic), [facility] ED School/Work Excuse
--- NOTE | 2017-09-05 18:28 | RAD ---
HISTORY: COUGH COMPARISON: No prior. TECHNIQUE: Chest PA and lateral FINDINGS: LUNGS: No active pulmonary disease. PLEURA: No significant pleural effusion identified. No pneumothorax apparent. CARDIOVASCULAR: Normal. OSSEOUS STRUCTURES: No significant abnormalities. VISUALIZED UPPER ABDOMEN: Normal. OTHER FINDINGS: None. IMPRESSION: No active disease.
== END 2017-09-05 14:39 | disposition short-term general hospital (02) ==
LOC: SUPCPDRO 12:43 → H.ER 12:43
DX: J40 Bronchitis, not specified as acute or chronic (principal); J45.909 Unspecified asthma, uncomplicated; F41.9 Anxiety disorder, unspecified; F32.9 Major depressive disorder, single episode, unspecified

== ENCOUNTER 2018-05-29 09:53 | Emergency (ER) | payer MEDICARE, MEDICAID ==
[2018-05-29 10:05] VITALS: RESP 18
[2018-05-29 10:41] VITALS: BMI 10.8
[2018-05-29] MEDS ORDERED: Sodium Chloride 0.9% 1,000 ML IV STA (10:41)
--- NOTE | 2018-05-29 11:00 | ED PDOC ---
HPI: Abdomen Time Seen by Provider: 05/29/18 10:20 Chief Complaint (Provider): Abdominal Pain History Per: Patient History/Exam Limitations: no limitations Onset/Duration Of Symptoms: Days (x1 week) Current Symptoms Are (Timing): Still Present Additional Complaint(s): 42-year-old female, with a past medical history of diverticulitis (last episode July), asthma, anemia, and HIV (undetectable on meds), presenting for evaluation of L sided abdominal pain x1 week. Patient states shes been having intermittent left sided abdominal pain for the past week which returned strongly today. She reports associated symptoms of bloody diarrhea and urinary frequency. Patient also reports a fever of 103 last night. She denies any nausea , vomiting or dysuria. PMD: [facility] Past Medical History Reviewed: Historical Data, Nursing Documentation, Vital Signs Vital Signs: Last Vital Signs Temp 98.1 F 05/29/18 16:36 Pulse 58 L 05/29/18 16:36 Resp 18 05/29/18 16:36 BP 136/93 H 05/29/18 16:36 Pulse Ox 100 05/29/18 16:36 - Medical History PMH: Anemia, Anxiety, Arthritis, Asthma, Depression, Diverticulitis, Gastritis, HIV Denies: Chronic Kidney Disease - Surgical History Surgical History: Endoscopy (X2) - Family History Family History: States: Unknown Family Hx - Immunization History Hx Tetanus Toxoid Vaccination: Yes (03/16/12) Hx Pneumococcal Vaccination: Yes (11/04/12) - Home Medications Home Medications: Ambulatory Orders Medication Instructions Recorded Acetaminophen/Oxycodone Hydr 1 tab PO BID PRN 09/26/15 [Percocet 10/325 mg Tab] Alprazolam [Xanax] 2 mg PO BID 09/26/15 Darunavir [Prezista] 1 tab PO DAILY 09/26/15 Emtricitabine/Tenofovir Diso 1 tab PO DAILY 09/26/15 [Truvada 200 MG-300 MG] Fluticasone/Salmeterol 100/50 2 puff INH DAILY 09/26/15 [Advair Diskus 100/50] Ritonavir [Norvir] 1 tab PO DAILY 09/26/15 Albuterol Sulfate [Proair Hfa] 2 puff IH PRN PRN 01/27/17 oxyCODONE [oxyCODONE Immediate 30 mg PO BID PRN 01/27/17 Release Tab] Dexlansoprazole [Dexilant] 1 tab PO DAILY 02/13/17 Albuterol 0.083% [Albuterol 0.083% 2.5 mg IH Q8 PRN #100 neb 09/05/17 Inhal Demetria (2.5 mg/3 ml) UD] Azithromycin [Zithromax] 250 mg PO DAILY #6 tab 09/05/17 Mask, Face [Nebulizer Aerosol Mask 1 dev XX PRN PRN #1 dev 09/05/17 Adult] Nebulizer [Aeroeclipse II] 1 each MC Q8 PRN #1 each 09/05/17 Prednisone [Deltasone] 2 tab PO DAILY #10 tablet 09/05/17 Promethazine/Codeine 5 ml PO DAILY PRN #50 ml 09/05/17 [Codeine/Promethazine 10 MG/5 Ml-6.25 MG/5 Ml] - Allergies Allergies/Adverse Reactions: Allergies Allergy/AdvReac Type Severity Reaction Status Date / Time efavirenz [From Sustiva] Allergy RASH Verified 01/11/16 14:58 kiwi Allergy ANAPHYLAXIS Verified 01/11/16 14:58 moxifloxacin HCl Allergy ANAPHYLAXIS Verified 01/11/16 14:58 [From Avelox] peach Allergy ANAPHYLAXIS Verified 01/11/16 14:58 hydromorphone HCl AdvReac Mild ITCHING Verified 01/27/17 10:00 [From Dilaudid] liquid codeine AdvReac HARD TO Uncoded 01/27/17 07:13 WAKE UP Review of Systems ROS Statement: Except As Marked, All Systems Reviewed And Found Negative Constitutional: Positive for: Fever Gastrointestinal: Positive for: Abdominal Pain. Negative for: Nausea, Vomiting Genitourinary Female: Negative for: Dysuria Physical Exam - Reviewed Nursing Documentation Reviewed: Yes Vital Signs Reviewed: Yes - Physical Exam Comments: GENERAL APPEARANCE: Patient is awake, alert, oriented x 3, laying in bed comfortably, in no acute distress. SKIN: Warm, dry; (-) cyanosis. EYES: (-) conjunctival pallor, (-) scleral icterus. ENMT: Moist mucous membranes. NECK: (-) tenderness, (-) stiffness, (-) lymphadenopathy. CHEST AND RESPIRATORY: (-) rales, (-) rhonchi, (-) wheezes; breath sounds equal bilaterally. HEART AND CARDIOVASCULAR: (-) irregularity; (-) murmur, (-) gallop. ABDOMEN AND GI: (-) distention. Bowel sounds active; (+) left sided abdominal tenderness, (-) guarding, (-) rebound, (-) palpable masses, (-) CVA tenderness. EXTREMITIES: (-) deformity, (-) edema, (+) distal pulses. NEURO AND PSYCH: Mental status as above; (-) focal findings. - Laboratory Results Result Diagrams: 05/29/18 11:40 05/29/18 11:40 - ECG O2 Sat by Pulse Oximetry: 98 (RA) Pulse Ox Interpretation: Normal Medical Decision Making Medical Decision Making: Plan: -CT Abdomen and pelvis -CMP -Lipase -Urine -Urine dipstick -CBC -Morphine 4mg IVP -1LNS -Zofran 4mg IVP -Urine culture -Reevaluation Labs reviewed and wnl. Uhcg (-) Udip (-) CT A/P : FINDINGS: LOWER THORAX: Very small hiatal hernia. LIVER: Normal size, contour and attenuation. Stable 6 mm low-attenuation lesion in the anterior right hepatic lobe. No biliary dilatation. GALLBLADDER AND BILE DUCTS: Contracted. No calcified gallstones. PANCREAS: Unremarkable. No gross lesion or ductal dilatation. SPLEEN: Unremarkable. ADRENALS: Unremarkable. No mass. KIDNEYS AND URETERS: Unremarkable. No hydronephrosis. No solid mass. VASCULATURE: Unremarkable. No aortic aneurysm. BOWEL: Sigmoid diverticulosis. No evidence of diverticulitis. No bowel obstruction. No other abnormal bowel loops are appreciated. APPENDIX: Normal appendix. PERITONEUM: No ascites. Very small umbilical hernia containing only mesenteric. No pneumoperitoneum. LYMPH NODES: Unremarkable. No enlarged lymph nodes. BLADDER: Unremarkable. REPRODUCTIVE: Normal uterus. Probable 4.4 cm right intramural uterine fibroid and 4.2 cm left intramural lower uterine segment fibroid. BONES: No acute fracture. OTHER FINDINGS: None. IMPRESSION: Sigmoid diverticulosis without evidence of diverticulitis. Uterine fibroids. Small hiatal hernia. On re-evaluation, patient reports improvement of symptoms, denies any abdominal pain, nausea or diarrhea in the ER. On exam, patient remains AAOx3, in no acute distress, laying in bed comfortably in good spirits. Abdomen soft, non-tender with no guarding or rebound. VSS, stable for discharge. Diagnostic results d/w the patient in great detail. Based on history, exam and diagnostic results, plan will be for outpatient follow up. Patient feels comfortable going home. Patient instructed to follow-up with pmd in 1-2 days without fail. Return to the emergency room at any time for any new or worsening symptoms. Patient states she fully agrees with and understands discharge instructions. States that she agrees with the plan and disposition. Verbalized and repeated discharge instructions and plan. I have given the patient opportunity to ask any additional questions. Scribe Attestation: Documented by Madan Huffman, acting as a scribe for Tamie Monahan PA-C. Provider Scribe Attestation: All medical record entries made by the Scribe were at my direction and personally dictated by me. I have reviewed the chart and agree that the record accurately reflects my personal performance of the history, physical exam, medical decision making, and the department course for this patient. I have also personally directed, reviewed, and agree with the discharge instructions and disposition. Disposition - Clinical Impression Clinical Impression: Abdominal pain - Patient ED Disposition Is Patient to be Admitted: No Counseled Patient/Family Regarding: Studies Performed, Diagnosis, Need For Followup, Rx Given - Disposition Disposition: Routine/Home Disposition Time: 15:45 Condition: STABLE Additional Instructions: Thank you for letting us take care of you today. You were treated for abdominal pain. The emergency medical care you received today was directed towards the acute presenting symptoms. Return to the Emergency Department at any time if symptoms worsen, do not improve, or if any other problems arise. Please contact your doctor in 2 days for re-evaluation and follow up. Bring any paperwork you were given at discharge with you along with any medications to your follow up visit. Our treatment cannot replace ongoing medical care by a primary care provider (PCP) outside of the emergency department. Thank you for allowing the [facility] team to be part of your care today. Instructions: Acute Abdomen (Belly Pain), Adult (DC) Forms: [facility] ED School/Work Excuse
[2018-05-29 12:02] LABS: BASO % 0.7 % (0.0-2.0); EOS # 0.1 K/uL (0.0-0.7); EOS % 1.2 % (0.0-4.0); HEMOGLOBIN 13.1 g/dL (12.0-16.0); LYMPH # 1.5 K/uL (1.0-4.3); LYMPH % 33.7 % (20.0-40.0); MEAN CELL VOLUME 95.4 fl (81.0-99.0); MEAN CORPUSCULAR HEMOGLOBIN 32.1 pg (27.0-31.0); MEAN CORPUSCULAR HGB CONC 33.7 g/dL (33.0-37.0); MEAN PLATELET VOLUME 9.3 fl (7.2-11.7); MONO # 0.4 K/uL (0.0-0.8); MONO % 9.5 % (0.0-10.0); NEUT # 2.4 K/uL (1.8-7.0); NEUT % 54.9 % (50.0-75.0); NRBC % 0.1 % (0.0-0.0); RBC 4.08 Mil/uL (3.80-5.20); RED CELL DISTRIBUTION WIDTH 12.7 % (11.5-14.5); WHITE BLOOD COUNT 4.4 K/uL (4.8-10.8)
[2018-05-29] MEDS ORDERED: Morphine 4 MG/ML VIAL IVP STA (12:05)
[2018-05-29] MEDS ORDERED: Morphine 4 MG/ML VIAL ONE (12:05)
[2018-05-29 12:10] LABS: ALB/GLOB RATIO 1.3 (1.0-2.1); ALBUMIN 3.7 g/dL (3.5-5.0); ALT/SGPT 26 U/L (9-52); AST/SGOT 19 U/L (14-36); BLOOD UREA NITROGEN 15 mg/dl (7-17); CALCIUM 8.6 mg/dL (8.4-10.2); GFR AFRICAN-AMERICAN > 60; GFR NON-AFRICAN AMERICAN > 60; LIPASE 105 U/L (23-300)
[2018-05-29] MEDS ORDERED: Sodium Chloride 0.9% 50 ML IV ONE (13:33)
[2018-05-29] MEDS ORDERED: Iohexol 300 100 ML IJ ONE (13:33)
--- NOTE | 2018-05-29 15:10 | CT ---
Date of service: 05/29/2018 PROCEDURE: CT Abdomen and Pelvis with contrast HISTORY: L abd pain, r/o diverticulitis COMPARISON: 02/13/2017 TECHNIQUE: Contrast dose: 98 cc Omnipaque 300 Radiation dose: Total exam DLP = 963.76 mGy-cm. This CT exam was performed using one or more of the following dose reduction techniques: Automated exposure control, adjustment of the mA and/or kV according to patient size, and/or use of iterative reconstruction technique. FINDINGS: LOWER THORAX: Very small hiatal hernia. LIVER: Normal size, contour and attenuation. Stable 6 mm low-attenuation lesion in the anterior right hepatic lobe. No biliary dilatation. GALLBLADDER AND BILE DUCTS: Contracted. No calcified gallstones. PANCREAS: Unremarkable. No gross lesion or ductal dilatation. SPLEEN: Unremarkable. ADRENALS: Unremarkable. No mass. KIDNEYS AND URETERS: Unremarkable. No hydronephrosis. No solid mass. VASCULATURE: Unremarkable. No aortic aneurysm. BOWEL: Sigmoid diverticulosis. No evidence of diverticulitis. No bowel obstruction. No other abnormal bowel loops are appreciated. APPENDIX: Normal appendix. PERITONEUM: No ascites. Very small umbilical hernia containing only mesenteric. No pneumoperitoneum. LYMPH NODES: Unremarkable. No enlarged lymph nodes. BLADDER: Unremarkable. REPRODUCTIVE: Normal uterus. Probable 4.4 cm right intramural uterine fibroid and 4.2 cm left intramural lower uterine segment fibroid. BONES: No acute fracture. OTHER FINDINGS: None. IMPRESSION: Sigmoid diverticulosis without evidence of diverticulitis. Uterine fibroids. Small hiatal hernia.
[2018-05-29 16:36] VITALS: BP 136/93; PULSE 58; TEMP 98.1
[2018-05-29 17:04] VITALS: O2SAT 98
== END 2018-05-29 16:42 | disposition home or self-care (01) ==
LOC: H.ER 09:53
DX: R10.9 Unspecified abdominal pain (principal); Z86.59 Personal history of other mental and behavioral disorders; J45.909 Unspecified asthma, uncomplicated; K57.30 Diverticulosis of large intestine without perforation or abscess without bleeding; B20 Human immunodeficiency virus [HIV] disease
CPT/HCPCS: 74177; 80053; 81025; 83690; 85025; 87086; 96361; 96374; 96375; 99284; J2270; J2405; J7030; Q9967

== ENCOUNTER 2018-08-07 21:47 | Emergency (ER) | payer MEDICARE, MEDICAID ==
[2018-08-07 21:47] VITALS: BMI 10.8
[2018-08-07] MEDS ORDERED: Iohexol 240 (50 ml) PO ONE (22:33)
[2018-08-07] MEDS ORDERED: Sodium Chloride 0.9% 1,000 ML IV STA (22:33)
--- NOTE | 2018-08-07 22:38 | ED PDOC ---
HPI: Abdomen Time Seen by Provider: 08/07/18 22:14 Chief Complaint (Nursing): Chest Pain Chief Complaint (Provider): Abd pain History Per: Patient History/Exam Limitations: no limitations Onset/Duration Of Symptoms: Days (thursday) Additional Complaint(s): Pt. with chest pain that went away and came back today. Also with dyspnea when chest pain comes. Has abd pain left lower and left side. It also went away and came back today. Nausea, vomit x1, nonbloody. No diarrhea. No weakness, headaches, dizziness, leg pain, back pain, fever. No new food or drinks. No long distance travel or hormone tx. Had chest pain similar in the past. Abd pain feels like her diverticulitis. Past Medical History Reviewed: Nursing Documentation, Vital Signs Vital Signs: Last Vital Signs Temp 98.5 F 08/07/18 21:59 Pulse 78 08/07/18 21:59 Resp 16 08/07/18 21:59 BP 119/74 08/07/18 21:59 Pulse Ox 96 08/07/18 21:59 - Medical History PMH: Anemia, Anxiety, Arthritis, Asthma, Depression, Diverticulitis, Gastritis, HIV Denies: Chronic Kidney Disease - Surgical History Surgical History: Endoscopy (X2) - Family History Family History: States: Unknown Family Hx - Immunization History Hx Tetanus Toxoid Vaccination: Yes (03/16/12) Hx Pneumococcal Vaccination: Yes (11/04/12) - Home Medications Home Medications: Ambulatory Orders Medication Instructions Recorded Acetaminophen/Oxycodone Hydr 1 tab PO BID PRN 09/26/15 [Percocet 10/325 mg Tab] Alprazolam [Xanax] 2 mg PO BID 09/26/15 Darunavir [Prezista] 1 tab PO DAILY 09/26/15 Emtricitabine/Tenofovir Diso 1 tab PO DAILY 09/26/15 [Truvada 200 MG-300 MG] Fluticasone/Salmeterol 100/50 2 puff INH DAILY 09/26/15 [Advair Diskus 100/50] Ritonavir [Norvir] 1 tab PO DAILY 09/26/15 Albuterol Sulfate [Proair Hfa] 2 puff IH PRN PRN 01/27/17 oxyCODONE [oxyCODONE Immediate 30 mg PO BID PRN 01/27/17 Release Tab] Dexlansoprazole [Dexilant] 1 tab PO DAILY 02/13/17 Albuterol 0.083% [Albuterol 0.083% 2.5 mg IH Q8 PRN #100 neb 09/05/17 Inhal Demetria (2.5 mg/3 ml) UD] Azithromycin [Zithromax] 250 mg PO DAILY #6 tab 09/05/17 Mask, Face [Nebulizer Aerosol Mask 1 dev XX PRN PRN #1 dev 09/05/17 Adult] Nebulizer [Aeroeclipse II] 1 each MC Q8 PRN #1 each 09/05/17 Prednisone [Deltasone] 2 tab PO DAILY #10 tablet 09/05/17 Promethazine/Codeine 5 ml PO DAILY PRN #50 ml 09/05/17 [Codeine/Promethazine 10 MG/5 Ml-6.25 MG/5 Ml] - Allergies Allergies/Adverse Reactions: Allergies Allergy/AdvReac Type Severity Reaction Status Date / Time efavirenz [From Sustiva] Allergy RASH Verified 08/07/18 21:59 kiwi Allergy ANAPHYLAXIS Verified 08/07/18 21:59 moxifloxacin HCl Allergy ANAPHYLAXIS Verified 08/07/18 21:59 [From Avelox] peach Allergy ANAPHYLAXIS Verified 08/07/18 21:59 hydromorphone HCl AdvReac Mild ITCHING Verified 08/07/18 21:59 [From Dilaudid] liquid codeine AdvReac HARD TO Uncoded 08/07/18 21:59 WAKE UP Review of Systems ROS Statement: Except As Marked, All Systems Reviewed And Found Negative Cardiovascular: Positive for: Chest Pain Respiratory: Positive for: Shortness of Breath Gastrointestinal: Positive for: Nausea, Vomiting, Abdominal Pain Physical Exam - Reviewed Nursing Documentation Reviewed: Yes Vital Signs Reviewed: Yes - Physical Exam Appears: Positive for: Non-toxic, No Acute Distress Head Exam: Positive for: ATRAUMATIC, NORMAL INSPECTION, NORMOCEPHALIC Skin: Positive for: Normal Color, Warm, DRY Eye Exam: Positive for: EOMI, Normal appearance, PERRL ENT: Positive for: Normal ENT Inspection Neck: Positive for: Normal, Painless ROM Cardiovascular/Chest: Positive for: Regular Rate, Rhythm, Chest Non Tender. Negative for: Edema Respiratory: Positive for: CNT, Normal Breath Sounds Gastrointestinal/Abdominal: Positive for: Soft, Tenderness (LLQ) Back: Positive for: Normal Inspection. Negative for: L CVA Tenderness, R CVA Tenderness Extremity: Positive for: Normal ROM. Negative for: Tenderness Neurologic/Psych: Positive for: Alert, Oriented - ECG O2 Sat by Pulse Oximetry: 96 Pulse Ox Interpretation: Normal - Progress ED Course And Treament: 1125: Stable. AAOx3. Dr. Greewnood to fu on imaging and labs. Disposition - Clinical Impression Clinical Impression: Chest pain, Abdominal tenderness - Patient ED Disposition Is Patient to be Admitted: Transfer of Care - Disposition Disposition Time: 23:25 Condition: STABLE Patient Signed Over To: Fran Greenwood
[2018-08-07] MEDS ORDERED: Iohexol 240 (50 ml) ONE (23:31)
[2018-08-08 00:06] LABS: EOS # 0.1 K/uL (0.0-0.7); EOS % 1.5 % (0.0-4.0); HEMOGLOBIN 13.4 g/dL (12.0-16.0); LYMPH # 2.1 K/uL (1.0-4.3); LYMPH % 43.4 % (20.0-40.0); MEAN CELL VOLUME 95.3 fl (81.0-99.0); MEAN CORPUSCULAR HEMOGLOBIN 31.8 pg (27.0-31.0); MEAN CORPUSCULAR HGB CONC 33.4 g/dL (33.0-37.0); MEAN PLATELET VOLUME 9.5 fl (7.2-11.7); MONO # 0.4 K/uL (0.0-0.8); MONO % 8.9 % (0.0-10.0); NEUT # 2.2 K/uL (1.8-7.0); NEUT % 45.2 % (50.0-75.0); NRBC % 0.1 % (0.0-0.0); RBC 4.21 Mil/uL (3.80-5.20); RED CELL DISTRIBUTION WIDTH 12.8 % (11.5-14.5); WHITE BLOOD COUNT 4.8 K/uL (4.8-10.8)
[2018-08-08 00:09] LABS: ALB/GLOB RATIO 1.1 (1.0-2.1); ALBUMIN 3.9 g/dL (3.5-5.0); ALT/SGPT 20 U/L (9-52); AST/SGOT 21 U/L (14-36); BLOOD UREA NITROGEN 16 mg/dl (7-17); CALCIUM 8.8 mg/dL (8.4-10.2); GFR NON-AFRICAN AMERICAN > 60
--- NOTE | 2018-08-08 01:41 | ED PDOC ---
- Laboratory Results Result Diagrams: 08/07/18 23:40 08/07/18 23:40 - ECG O2 Sat by Pulse Oximetry: 96 Medical Decision Making Medical Decision Makin:00 Patient signed out to Fran Greenwood MD pending evaluation and CT Time: 2:32 CT abd/Pelvis FINDINGS: LUNG BASES: The lung bases appear clear. No pleural effusions are seen. LIVER: Unremarkable. GALLBLADDER AND BILE DUCTS: The gallbladder appears within normal limits. No radioopaque gallstones are seen. No biliary ductal dilatation is evident. PANCREAS: Unremarkable. SPLEEN: Unremarkable. ADRENAL GLANDS: Unremarkable. KIDNEYS, URETERS, AND BLADDER: The kidneys appear within normal limits. There is no hydronephrosis or hydroureter. No urinary calculi are seen. STOMACH AND BOWEL: There is diffuse diverticulosis noted involving descending and sigmoid colon. No evidence of acute diverticulitis. Small hiatal hernia is noted. APPENDIX: No evidence of acute appendicitis on CT examination. PERITONEUM: No free fluid. No free air. LYMPH NODES: No lymphadenopathy is evident. REPRODUCTIVE: Unremarkable as visualized. VASCULATURE: No evidence of abdominal aortic aneurysm. BONES: No aggressive appearing osseous lesion. No acute osseous pathology evident. IMPRESSION: 1. There is diffuse diverticulosis noted involving descending and sigmoid colon. No evidence of acute diverticulitis. 2. Small hiatal hernia is noted. 3. No acute pathology. Patient well appearing upon re-eval, no longer vomiting, normal vitals. Strongly advised folllowup with GI and PMD, states she will see Dr. Lynn in clinic. Advised diet changes, bentyl. Well appearing, tolerating PO upon discharge. Disposition - Clinical Impression Clinical Impression: Chest pain, Diverticulosis - POA Present On Arrival: None - Disposition Referrals: [facility] [Outside] Disposition: Routine/Home Disposition Time: 03:01 Condition: STABLE Prescriptions: Dicyclomine [Bentyl] 20 mg PO BID #30 tab Instructions: High Fiber Diet, Diverticulosis Forms: [employer] (Czech)
[2018-08-08] MEDS ORDERED: Iohexol 300 100 ML IJ ONE (02:04)
[2018-08-08] MEDS ORDERED: Sodium Chloride 0.9% 50 ML IV ONE (02:05)
[2018-08-08 03:09] VITALS: BP 115/80; PULSE 66; RESP 18; TEMP 98; O2SAT 98
--- NOTE | 2018-08-08 10:05 | RAD ---
Date of service: 08/07/2018 HISTORY: dyspnea COMPARISON: Chest radiograph dated 09/05/2017 FINDINGS: LUNGS: No active pulmonary disease. PLEURA: No significant pleural effusion identified, no pneumothorax apparent. CARDIOVASCULAR: No aortic atherosclerotic calcification present. Cardiomediastinal silhouette stably prominent. No pulmonary vascular congestion. OSSEOUS STRUCTURES: No significant abnormalities. VISUALIZED UPPER ABDOMEN: Normal. OTHER FINDINGS: None. IMPRESSION: No active disease.
--- NOTE | 2018-08-08 10:25 | CT ---
Date of service: 08/08/2018 PROCEDURE: CT Abdomen and Pelvis with contrast HISTORY: abd pain COMPARISON: CT scan of the abdomen and pelvis dated 05/29/2018. TECHNIQUE: Contrast dose: 90 mL Omnipaque 300 Radiation dose: Total exam DLP = 853.53 mGy-cm. This CT exam was performed using one or more of the following dose reduction techniques: Automated exposure control, adjustment of the mA and/or kV according to patient size, and/or use of iterative reconstruction technique. FINDINGS: LOWER THORAX: Unremarkable. LIVER: 7 mm too small to characterize right hepatic lobe hypodensity. No gross lesion or ductal dilatation. GALLBLADDER AND BILE DUCTS: Unremarkable. PANCREAS: Unremarkable. No gross lesion or ductal dilatation. SPLEEN: Unremarkable. ADRENALS: Unremarkable. No mass. KIDNEYS AND URETERS: Unremarkable. No hydronephrosis. No solid mass. VASCULATURE: Unremarkable. No aortic aneurysm. No aortic atherosclerotic calcification or mural plaque present. BOWEL: Colonic diverticulosis. No obstruction. No gross mural thickening. APPENDIX: Normal appendix. PERITONEUM: Tiny fat containing umbilical hernia. No free fluid. No free air. LYMPH NODES: Unremarkable. No enlarged lymph nodes. BLADDER: Unremarkable. REPRODUCTIVE: Stable appearance of right intramural versus submucosal 4.4 cm fibroid and left 4.2 cm intramural lower uterine segment fibroid. BONES: No acute fracture. OTHER FINDINGS: None. IMPRESSION: No acute abdominal pelvic pathology. Stable findings as above.
--- NOTE | 2018-08-08 13:47 | CARD ---
APPROVED REPORT Date of service: 08/07/2018 EKG Measurement Heart [id number] <Conclusion> Normal sinus rhythm Left axis deviation Abnormal ECG
== END 2018-08-08 03:10 | disposition home or self-care (01) ==
LOC: H.ER 21:47
DX: R07.9 Chest pain, unspecified (principal); R10.819 Abdominal tenderness, unspecified site; K57.30 Diverticulosis of large intestine without perforation or abscess without bleeding; Z86.59 Personal history of other mental and behavioral disorders; J45.909 Unspecified asthma, uncomplicated
CPT/HCPCS: 71045; 74177; 80053; 81025; 84484; 85025; 93005; 96374; 96375; 99285; J1885; J2405; J7030; Q9966; Q9967